=== PATIENT | female | born 1955 | race Caucasian/White ===

== ENCOUNTER → 2017-01-25 | Outpatient (CLI) | payer BC ==
[~2017-01-25] MED LIST: LPTUNK; PRM/45 PO
--- NOTE | 2017-01-25 13:57 | MAMMOGRAPHY REPORT ---
BILATERAL DIGITAL SCREENING MAMMOGRAM WITH CAD: 01/25/2017 CLINICAL HISTORY: Routine screening. Patient has no complaints. TECHNIQUE: Current study was also evaluated with a Computer Aided Detection (CAD) system. Bilatera l CC and MLO views were obtained. COMPARISON: Comparison is made to exams dated: 11/14/2015 mammogram, 11/12/2014 mammogram, 11/12/20 14 mammogram, 11/09/2013 mammogram, 11/04/2012 mammogram, and 10/30/2011 mammogram - [facility]. BREAST COMPOSITION: There are scattered areas of fibroglandular density in both breasts. FINDINGS: No suspicious masses, calcifications, or areas of architectural distortion are noted in e ither breast. There has been no significant interval change compared to prior exams. Bilateral chastity gn-appearing masses/asymmetries are stable compared to prior exams. Scattered bilateral benign-appe aring calcifications are also stable. IMPRESSION: ACR BI-RADS CATEGORY 2: BENIGN There is no mammographic evidence of malignancy. A 1 year screening mammogram is recommended. The p atient will receive written notification of the results. Approximately 10% of breast cancers are not detected with mammography. A negative mammographic repor t should not delay biopsy if a clinically suggestive mass is present. Ruth Ann Reed M.D. ah/:01/25/2017 07:53:09 Franchise Specialist: Dulce RAZA([place])([place])([place]), [facility] letter sent: Normal 1/2 BI-RADS Code: ACR BI-RADS Category 2: Benign
== END | disposition home or self-care (01) ==
LOC: C.MAMM 07:26
DX: Z12.31 Encounter for screening mammogram for malignant neoplasm of breast (principal)

== ENCOUNTER → 2017-05-28 | Outpatient (CLI) | payer BC ==
--- NOTE | 2017-05-28 13:36 | Discharge Instructions ---
Discharge Instructions Procedure Procedure Date: May 28, 2017. Reason for visit: Thyroid Nodule. Discharge Discharge Date: May 28, 2017. Discharge Diagnosis: Thyroid/parathyroid nodule Instructions Activity Recommendations: No limitations Return to School/Work: no limitations Recommended Home Diet: No Limitations, Resume Previous Diet Provider Instructions: Ultrasound guided fine needle aspiration of a hypoechoic nodule posterior to the right thyroid lobe is performed with 3 passes utilizing 25-gauge needles. Specimens were reviewed by the pathologist in real-time and deemed likely adequate for diagnosis. The procedure was well tolerated and without immediate complication. Allergies Coded Allergies: Quinolones (Unverified Allergy, Unknown, HIVES, 01/25/17) Tetracycline (Unverified Adverse Reaction, Unknown, HEADACHE, 01/25/17) [place] Recommendations: Call your doctor if: * Temperature above 101 degrees * Pain not relieved by pain medicine ordered * There is increased drainage or redness from any incision * You have any unanswered questions or concerns. Your Doctors Instructions noted above were prepared by provider Rip Tobin. Patient Signature Section: Patient Instructions Signature Page Dominique Sharpe Patient (or Guardian) Signature/Date: I have read and understand the instructions given to me by my caregivers. Caregiver/RN/Doctor Signature/Date: The above-named patient and/or guardian has received patient instructions on this date. + Original Patient Signature Page (only) stays with chart. Please make copy for patient.
--- NOTE | 2017-05-28 13:47 | DIAGNOSTIC IMAGING REPORT ---
ULTRASOUND-GUIDED FINE-NEEDLE ASPIRATION THYROID/PARATHYROID CLINICAL HISTORY: Hypercalcemia. Nodule posterior to the right thyroid lobe. COMPARISON STUDY: Thyroid ultrasound dated 05/13/2017. PROCEDURE: The risks, benefits, and alternatives to the procedure were discussed with the patient. Written informed consent was obtained. The patient was placed supine in ultrasound, and the 1.6 x 0.4 x 0.9 cm hypoechoic ovoid nodule posterior to the right lobe of the thyroid was localized by ultrasound and selected for fine needle aspiration. The right neck was prepped and draped in the usual sterile fashion. The nodule was aspirated under ultrasound guidance with 3 passes utilizing 25-gauge needles. Specimens were reviewed by the pathologist in real-time and deemed likely adequate for diagnosis. The patient tolerated the procedure well and left the department in satisfactory condition. IMPRESSION: Completed fine-needle aspiration of a hypoechoic nodule posterior to the right thyroid lobe as above. Electronically signed by: Rip Tobin M.D. 05/28/2017 1:45 PM Dictated Date/Time: 05/28/2017 1:40 PM
== END | disposition home or self-care (01) ==
LOC: C.ULTR 12:21
PROVIDERS: ATTEND Nurse Practitioner
DX: D44.0 Neoplasm of uncertain behavior of thyroid gland (principal)

== ENCOUNTER → 2018-01-29 | Outpatient (CLI) | payer OTHER, BC ==
--- NOTE | 2018-01-29 15:54 | MAMMOGRAPHY REPORT ---
BILATERAL DIGITAL SCREENING MAMMOGRAM TOMOSYNTHESIS WITH CAD: 01/29/2018 CLINICAL HISTORY: Routine screening. Patient has no complaints. TECHNIQUE: Breast tomosynthesis in addition to standard 2D mammography was performed. Current study was also evaluated with a Computer Aided Detection (CAD) system. COMPARISON: Comparison is made to exams dated: 01/25/2017 mammogram, 11/14/2015 mammogram, 11/12/2014 mammogram, 11/12/2014 mammogram, 11/09/2013 mammogram, and 11/04/2012 mammogram - [facility]. BREAST COMPOSITION: There are scattered areas of fibroglandular density in both breasts. FINDINGS: There is stable nodularity in the left breast. No suspicious mass, architectural distorti on or cluster of microcalcifications is seen. IMPRESSION: ACR BI-RADS CATEGORY 1: NEGATIVE There is no mammographic evidence of malignancy. A 1 year screening mammogram is recommended. The pa tient will receive written notification of the results. Approximately 10% of breast cancers are not detected with mammography. A negative mammographic report should not delay biopsy if a clinically suggestive mass is present. Sissy Langford M.D. ay/:01/29/2018 07:56:01 Bin Packer: Irina RAZA([place])([place]), [facility] letter sent: Normal 1/2 BI-RADS Code: ACR BI-RADS Category 1: Negative
== END | disposition home or self-care (01) ==
LOC: C.MAMM 07:30
PROVIDERS: ATTEND Physician Assistant
DX: Z12.31 Encounter for screening mammogram for malignant neoplasm of breast (principal)